=== PATIENT | female | born 1990 | race Two or more races ===

== ENCOUNTER 2023-02-19 22:28 | Emergency (ER) | payer MEDICAID ==
[~2023-02-19] VITALS: Ht 165.1 cm; Wt 61.4 kg
[2023-02-20] MEDS ORDERED: ONDANSETRON HCL 4 MG/2 ML VIAL IM ONE
[2023-02-20] MEDS ORDERED: CEPHALEXIN MONOHYDRATE 500 MG CAPSULE PO ONE
[2023-02-20] MEDS ORDERED: HYDROmorphone HCL 2 MG/ML SYRINGE IM ONE
[2023-02-20] MEDS ORDERED: LIDOCAINE 1% 10 ML VIAL SQ ONE
[2023-02-20] MEDS ORDERED: DOXYCYCLINE HYCLATE 100 MG TABLET PO ONE
[2023-02-20] MEDS ORDERED: IBUP-1554 PO (01:29)
[2023-02-20] MEDS ORDERED: DOXY-354 PO (01:29)
[2023-02-20] MEDS ORDERED: CEPH-558 PO (01:29)
[2023-02-20] MEDS ORDERED: HYDR-4723 PO (01:29)
[2023-02-20 01:41] VITALS: BP 127/77
== END 2023-02-20 01:43 | disposition home or self-care (01) ==
LOC: EMS 22:30
DX: L02.211 Cutaneous abscess of abdominal wall (principal); F15.90 Other stimulant use, unspecified, uncomplicated
CPT/HCPCS: 99284; 10060; 96372; J1170; J2405; J3490

== ENCOUNTER 2023-03-22 23:04 | Emergency (ER) | payer MEDICAID, OTHER ==
[~2023-03-22] VITALS: Ht 165.1 cm; Wt 65.9 kg
[~2023-03-22 23:04] MED LIST: CEPH-558 PO; DOXY-354 PO; HYDR-4723 PO; IBUP-1554 PO
[2023-03-22 23:17] VITALS: BP 110/77
[2023-03-23] MEDS ORDERED: LIDOCAINE/PF 1% 2 ML VIAL IM ONE (01:15)
[2023-03-23] MEDS ORDERED: CefTRIAXone SODIUM 1 GM/VIAL IM ONE (01:15)
== END 2023-03-23 02:06 | disposition home or self-care (01) ==
LOC: EMS 23:04 → EDUNIT# 23:04 → EMS 03-23 02:06
DX: L03.115 Cellulitis of right lower limb (principal); F17.200 Nicotine dependence, unspecified, uncomplicated; F19.90 Other psychoactive substance use, unspecified, uncomplicated
CPT/HCPCS: 99283; 96372; J0696; J3490

== ENCOUNTER 2023-05-13 17:08 | Emergency (ER) | payer OTHER ==
[~2023-05-13] VITALS: Ht 165.1 cm; Wt 64.5 kg
[2023-05-13] MEDS ORDERED: ACET-2080 PO (18:40)
[2023-05-13] MEDS ORDERED: NAPH15DR75 OD (18:40)
[2023-05-13] MEDS ORDERED: DIPH50CA37 PO (18:40)
[2023-05-13] MEDS ORDERED: GENTAMICIN SULFATE 0.3% OPHTHALMIC SOLUTION 5 ML OD ONE (18:45)
[2023-05-13] MEDS ORDERED: ACETAMINOPHEN/CODEINE 300-30 MG TABLET PO ONE (18:45)
[2023-05-13 18:58] VITALS: BP 114/76
== END 2023-05-13 19:19 | disposition home or self-care (01) ==
LOC: EMS 17:12
DX: H10.9 Unspecified conjunctivitis (principal); F17.210 Nicotine dependence, cigarettes, uncomplicated; F15.90 Other stimulant use, unspecified, uncomplicated
CPT/HCPCS: 99283

== ENCOUNTER 2023-11-22 18:45 | Emergency (ER) | payer OTHER ==
[~2023-11-22] VITALS: Ht 165.1 cm; Wt 60.5 kg
[~2023-11-22 18:45] MED LIST changes: +ACET-2080 PO; -CEPH-558 PO; +DIPH50CA37 PO; -DOXY-354 PO; -HYDR-4723 PO; -IBUP-1554 PO; +NAPH15DR75 OD
[2023-11-22 18:48] VITALS: BP 119/67; PULSE 118; RESP 16; TEMP 98.4
[2023-11-22 19:07] LABS: BASOPHILS % (AUTO) 0.5 % (0.0-2.0); EOSINOPHILS % (AUTO) 0.6 % (1.0-6.0); HEMATOCRIT 36.1 % (36-46); HEMOGLOBIN 12.5 g/dL (12.0-16.0); LYMPHOCYTES # (AUTO) 3.1 K/uL (1.0-4.8); LYMPHOCYTES % (AUTO) 22.6 % (22.0-44.0); MEAN CORPUSCULAR HEMOGLOBIN 31.1 pg (26.0-34.0); MEAN CORPUSCULAR HGB CONC 34.5 G/dL (31.0-37.0); MEAN CORPUSCULAR VOLUME 90 fL (80-100); MONOCYTES # (AUTO) 0.9 K/uL (0.1-1.0); MONOCYTES % (AUTO) 6.6 % (2.0-9.0); NEUTROPHILS # (AUTO) 9.7 K/uL (1.8-7.7); NEUTROPHILS % (AUTO) 69.7 % (40.0-70.0); PLATELET COUNT (AUTO) 349 K/uL (150-450); RED BLOOD CELL COUNT(AUTO) 4.01 MIL/uL (4.00-5.20); RED CELL DISTRIBUTION WIDTH 13.3 % (11.5-14.5); WHITE BLOOD COUNT (AUTO) 13.9 K/uL (4.5-11.0)
[2023-11-22 19:18] LABS: ANION GAP 8 mmol/L (8-16); CALCIUM, TOTAL 9.4 mg/dL (8.8-10.5); CARBON DIOXIDE 30 mmol/L (22-29); CHLORIDE 105 mmol/L (98-107); CREATININE 0.81 mg/dL (0.60-1.30); GLOMERULAR FILTR. RATE CALC > 60 mL/min (>60); GLUCOSE,RANDOM 95 mg/dL (70-110); POTASSIUM 4.1 mmol/L (3.5-5.1); SODIUM SERUM 143 mmol/L (136-145); UREA NITROGEN, BLOOD 9 mg/dL (7-18)
[2023-11-22 19:24] LABS: ALANINE AMINOTRANSFERASE 22 U/L (12-78); ALKALINE PHOSPHATASE 102 U/L (46-116); ASPARTATE AMINOTRANSFERASE 16 U/L (15-37); BILIRUBIN,TOTAL 0.4 mg/dL (0.1-1.0); LIPASE 41 U/L (16-77); TOTAL PROTEIN, SERUM 8.5 g/dL (6.4-8.2)
== END 2023-11-22 21:09 | disposition left against medical advice (07) ==
LOC: EMS 18:45
DX: M54.50 Low back pain, unspecified (principal); Z53.21 Procedure and treatment not carried out due to patient leaving prior to being seen by health care provider
CPT/HCPCS: 80053; 83690; 84703; 85025; 99281

== ENCOUNTER 2023-12-12 01:37 | Emergency (ER) | payer OTHER ==
[~2023-12-12] VITALS: Ht 160 cm; Wt 59.1 kg
[2023-12-12 03:00] LABS: COVID AG,FIA SOURCE NASAL SWAB
[2023-12-12] MEDS ORDERED: ACETAMINOPHEN 325 MG TABLET PO ONE (03:00)
[2023-12-12] MEDS ORDERED: KETOROLAC TROMETHAMINE 30 MG/ML VIAL IM ONE (03:00)
[2023-12-12 03:32] LABS: INFLUENZA TYPE A NEGATIVE FOR TYPE A (NEGATIVE); INFLUENZA TYPE B NEGATIVE FOR TYPE B (NEGATIVE)
[2023-12-12 03:33] LABS: SARS-COV2 (COVID) ANTIGEN,FIA Negative (Negative)
[2023-12-12 03:35] VITALS: BP 123/67; PULSE 89; RESP 16; TEMP 99
[2023-12-12] MEDS ORDERED: ACET-3385 PO (03:37)
[2023-12-12] MEDS ORDERED: IBUP-1492 PO (03:37)
== END 2023-12-12 03:47 | disposition home or self-care (01) ==
LOC: EMS 01:38
DX: B34.9 Viral infection, unspecified (principal); F17.210 Nicotine dependence, cigarettes, uncomplicated; F15.90 Other stimulant use, unspecified, uncomplicated; Z20.822 Contact with and (suspected) exposure to COVID-19
CPT/HCPCS: 99283; 87426; 87430; 87804; 96372; J1885

== ENCOUNTER 2024-01-03 17:31 | Inpatient (IN) | payer OTHER ==
[~2024-01-03] VITALS: Ht 160 cm; Wt 66.8 kg
[~2024-01-03 17:31] MED LIST changes: +ACET-3385 PO; +IBUP-1492 PO
[2024-01-03 18:25] LABS: COVID AG,FIA SOURCE NASAL SWAB
[2024-01-03 18:26] LABS: BASOPHILS % (AUTO) 0.6 % (0.0-2.0); HEMATOCRIT 36.5 % (36-46); HEMOGLOBIN 12.2 g/dL (12.0-16.0); LYMPHOCYTES # (AUTO) 3.5 K/uL (1.0-4.8); LYMPHOCYTES % (AUTO) 53.3 % (22.0-44.0); MEAN CORPUSCULAR HEMOGLOBIN 30.3 pg (26.0-34.0); MEAN CORPUSCULAR HGB CONC 33.5 G/dL (31.0-37.0); MEAN CORPUSCULAR VOLUME 90 fL (80-100); MONOCYTES # (AUTO) 0.5 K/uL (0.1-1.0); MONOCYTES % (AUTO) 7.2 % (2.0-9.0); NEUTROPHILS # (AUTO) 2.4 K/uL (1.8-7.7); NEUTROPHILS % (AUTO) 36.9 % (40.0-70.0); PLATELET COUNT (AUTO) 343 K/uL (150-450); RED BLOOD CELL COUNT(AUTO) 4.04 MIL/uL (4.00-5.20); WHITE BLOOD COUNT (AUTO) 6.6 K/uL (4.5-11.0)
[2024-01-03 19:01] LABS: ANION GAP 9 mmol/L (8-16); CARBON DIOXIDE 26 mmol/L (22-29); CHLORIDE 105 mmol/L (98-107); GLOMERULAR FILTR. RATE CALC > 60 mL/min (>60); GLUCOSE,RANDOM 90 mg/dL (70-110); POTASSIUM 4.1 mmol/L (3.5-5.1); SODIUM SERUM 140 mmol/L (136-145); UREA NITROGEN, BLOOD 15 mg/dL (7-18)
[2024-01-03 19:01] LABS: SARS-COV2 (COVID) ANTIGEN,FIA Negative (Negative)
[2024-01-03 19:08] LABS: ALANINE AMINOTRANSFERASE 17 U/L (12-78); ALBUMIN 3.8 g/dL (3.4-5.0); ALKALINE PHOSPHATASE 70 U/L (46-116); ASPARTATE AMINOTRANSFERASE 14 U/L (15-37); BILIRUBIN,TOTAL 0.4 mg/dL (0.1-1.0); TOTAL PROTEIN, SERUM 7.6 g/dL (6.4-8.2)
[2024-01-03] MEDS ORDERED: ZOLPIDEM TARTRATE 5 MG TABLET PO PRN (21:30)
[2024-01-03] MEDS ORDERED: BISACODYL 10 MG RECTAL RECTAL SUPPOSITORY PR PRN (21:30)
[2024-01-03] MEDS ORDERED: IPRATROPIUM BROMIDE 0.5 MG/2.5 ML NEB SOLUTION NEB PRN (21:30)
[2024-01-03] MEDS ORDERED: MAGNESIUM HYDROXIDE SUSPENSION 30 ML UDCUP PO PRN (21:30)
[2024-01-03] MEDS ORDERED: ONDANSETRON HCL 4 MG/2 ML VIAL IVP PRN (21:30)
[2024-01-03] MEDS ORDERED: ALBUTEROL SULFATE 2.5 MG/0.5 ML NEB SOLUTION NEB PRN (21:30)
[2024-01-03 22:10] VITALS: BP 96/77; PULSE 56; RESP 18; TEMP 98.1
[2024-01-03] MEDS: HEPARIN SODIUM,PORCINE 5,000 UNITS/ML VIAL SQ SCH (23:52)
[2024-01-04] VITALS (8 sets, daily range): BP systolic 93–102; BP diastolic 50–59; PULSE 54–80; RESP 16–20; TEMP 97.7–98.6; O2SAT 96–99
[2024-01-04] MEDS ORDERED: SODIUM CHLORIDE 3% 15 ML NEB SOLUTION NEB ONE ×2 (00:11→14:34)
[2024-01-04 08:06] LABS: HIV 1-2 SCREEN 4TH GEN W/RFLX Non Reactive (Non Reactive)
[2024-01-04] MEDS: PANTOPRAZOLE SODIUM 40 MG DR TABLET PO SCH (09:24)
[2024-01-05 01:10] VITALS: BP 92/42; PULSE 68; RESP 20; TEMP 98.2
[2024-01-05 05:10] VITALS: BP 92/56; PULSE 57; RESP 16; TEMP 98
[2024-01-05 07:04] LABS: BASOPHILS % (AUTO) 0.4 % (0.0-2.0); EOSINOPHILS % (AUTO) 1.8 % (1.0-6.0); HEMATOCRIT 34.2 % (36-46); HEMOGLOBIN 11.5 g/dL (12.0-16.0); LYMPHOCYTES # (AUTO) 3.3 K/uL (1.0-4.8); LYMPHOCYTES % (AUTO) 49.2 % (22.0-44.0); MEAN CORPUSCULAR HEMOGLOBIN 30.3 pg (26.0-34.0); MEAN CORPUSCULAR HGB CONC 33.6 G/dL (31.0-37.0); MEAN CORPUSCULAR VOLUME 90 fL (80-100); MONOCYTES # (AUTO) 0.4 K/uL (0.1-1.0); MONOCYTES % (AUTO) 6.2 % (2.0-9.0); NEUTROPHILS # (AUTO) 2.8 K/uL (1.8-7.7); NEUTROPHILS % (AUTO) 42.4 % (40.0-70.0); PLATELET COUNT (AUTO) 298 K/uL (150-450); RED CELL DISTRIBUTION WIDTH 13.7 % (11.5-14.5); WHITE BLOOD COUNT (AUTO) 6.7 K/uL (4.5-11.0)
[2024-01-05 07:20] LABS: ANION GAP 11 mmol/L (8-16); CALCIUM, TOTAL 8.6 mg/dL (8.8-10.5); CARBON DIOXIDE 23 mmol/L (22-29); CHLORIDE 104 mmol/L (98-107); CREATININE 0.66 mg/dL (0.60-1.30); GLOMERULAR FILTR. RATE CALC > 60 mL/min (>60); GLUCOSE,RANDOM 97 mg/dL (70-110); POTASSIUM 3.8 mmol/L (3.5-5.1); SODIUM SERUM 138 mmol/L (136-145); UREA NITROGEN, BLOOD 16 mg/dL (7-18)
[2024-01-05 08:24] VITALS: BP 99/69; PULSE 57; RESP 18; TEMP 98
[2024-01-05 09:07] LABS: QUANTIFERON+, Nil Value 0.04 IU/mL; QUANTIFERON+,Mitogen Value >10.00 IU/mL; QUANTIFERON+,TB1 Antigen Value 0.06 IU/mL; QUANTIFERON+,TB2 Antigen Value 0.05 IU/mL; QUANTIFERON, TB GOLD PLUS Negative (Negative)
[2024-01-05 11:41] LABS: MTB PCR w/Rif. Resistance-SPUT NOT DETECTED (Not Detectd)
[2024-01-05] MEDS ORDERED: 0.9% SODIUM CHLORIDE 15 ML NEB SOLUTION NEB ONE (12:40)
[2024-01-05] MEDS ORDERED: SODIUM CHLORIDE 3% 15 ML NEB SOLUTION NEB ONE ×3 (12:40→20:46)
[2024-01-05 12:50] LABS: PH,URINE DRUG SCREEN 6.5 (5.0-8.0)
[2024-01-05 12:57] LABS: ALCOHOL, URINE DRUG SCREEN NEGATIVE (NEGATIVE); AMPHET/METH SCREEN,URINE POSITIVE (NEGATIVE); BARBITURATE SCREEN, URINE NEGATIVE (NEGATIVE); BENZODIAZEPINES SCREEN,URINE NEGATIVE (NEGATIVE); CANNABINOID SCREEN,URINE NEGATIVE (NEGATIVE); COCAINE SCREEN,URINE NEGATIVE (NEGATIVE); METHADONE SCREEN, URINE NEGATIVE (NEGATIVE); OPIATE SCREEN,URINE NEGATIVE (NEGATIVE); PHENCYCLIDINE SCREEN,URINE NEGATIVE (NEGATIVE)
[2024-01-05] MEDS: ACETAMINOPHEN 325 MG TABLET PO PRN (13:32)
[2024-01-05 18:54] VITALS: BP 92/60
[2024-01-05 20:25] VITALS: BP 104/62; PULSE 72; RESP 18; TEMP 98.2
[2024-01-06] VITALS (7 sets, daily range): BP systolic 98–106; BP diastolic 48–69; PULSE 61–79; RESP 18; TEMP 98–98.5
[2024-01-07 01:20] VITALS: BP 95/65; PULSE 76; RESP 18; TEMP 98.2
[2024-01-07 04:53] VITALS: BP 100/47; PULSE 60; RESP 19; TEMP 98.5
[2024-01-07] MEDS: HYDROCODONE/ACETAMINOPHEN 5-325 MG TABLET PO PRN (10:39)
[2024-01-07 12:21] VITALS: BP 104/59; PULSE 74; RESP 18; TEMP 98.4
[2024-01-07 16:11] VITALS: BP 103/56; PULSE 63; RESP 16; TEMP 97.8
[2024-01-07 20:00] VITALS: BP 102/51; PULSE 59; RESP 18; TEMP 98.3
[2024-01-08] VITALS (7 sets, daily range): BP systolic 100–118; BP diastolic 51–78; PULSE 66–89; RESP 17–18; TEMP 98–98.4
[2024-01-08] MEDS: SERTRALINE HCL 50 MG TABLET PO SCH (13:05)
[2024-01-09 05:50] VITALS: BP 100/63; PULSE 56; RESP 18; TEMP 98.6
[2024-01-09 10:20] VITALS: BP 105/53; PULSE 79; RESP 18; TEMP 98.4
[2024-01-09 12:00] VITALS: PULSE 56; RESP 18
[2024-01-09 16:00] VITALS: PULSE 61; RESP 18
[2024-01-09 20:40] VITALS: BP 105/66; PULSE 66; RESP 18; TEMP 98.2
[2024-01-10 00:41] VITALS: BP 99/68; PULSE 67; RESP 18; TEMP 98.2
[2024-01-10 05:36] VITALS: BP 99/58; PULSE 58; RESP 17; TEMP 98.3
[2024-01-10 09:01] VITALS: BP 101/59; PULSE 68; RESP 16; TEMP 98.3
[2024-01-10 12:40] VITALS: BP 116/72; PULSE 79; RESP 20; TEMP 98.1
[2024-01-10] MEDS: SERTRALINE HCL 50 MG TABLET PO ONE (12:52)
[2024-01-10 20:21] VITALS: BP 96/54; PULSE 58; RESP 20; TEMP 98.4
[2024-01-11 04:10] VITALS: BP 104/70; PULSE 75; RESP 18; TEMP 98.3
[2024-01-11] MEDS: SERTRALINE HCL 50 MG TABLET PO SCH (07:59)
[2024-01-11] MEDS ORDERED: SERTRALINE HCL 50 MG TABLET PO SCH (09:00)
[2024-01-11 09:30] VITALS: BP 102/57; PULSE 68; RESP 18; TEMP 98.1
[2024-01-11] MEDS ORDERED: SERT-158 PO (17:12)
[2024-01-11] MEDS ORDERED: MAGN-169 PO (17:14)
[2024-01-11] MEDS ORDERED: ACET650S24 PR (17:14)
== END 2024-01-11 19:19 | DRG 179 ==
LOC: EMS 17:32 → 5N 20:49 → UNDOADMIN 21:04 → 6N 21:04 → EMS 21:07 → 6S 01-10 11:42
PROVIDERS: ADMIT Hospitalist; ATTEND Hospitalist
DX: A15.9 Respiratory tuberculosis unspecified (principal); F17.200 Nicotine dependence, unspecified, uncomplicated; Z20.822 Contact with and (suspected) exposure to COVID-19; F15.10 Other stimulant abuse, uncomplicated; F32.A Depression, unspecified; F41.9 Anxiety disorder, unspecified
CPT/HCPCS: 71046; 71250; 80048; 80053; 80307; 84702; 85025; 86480; 87015; 87206; 87389; 87556; 94640; 99285; J1644; 36415-L1; 36415-TC